=== PATIENT | female | born 1960 | race Caucasian/White ===

== ENCOUNTER 2023-05-30 10:59 | Emergency (ER) | payer OTHER ==
[~2023-05-30] VITALS: Ht 154.9 cm; Wt 63.0 kg
[~2023-05-30 10:59] MED LIST: HYDROXYCHLOROQ200 MG PO
== END 2023-05-30 12:05 | disposition home or self-care (01) ==
LOC: ER
DX: M54.89 Other dorsalgia (principal); Z88.8 Allergy status to other drugs, medicaments and biological substances; Z88.6 Allergy status to analgesic agent; Z91.013 Allergy to seafood